=== PATIENT | female | born 1960 | race Caucasian/White ===

== ENCOUNTER 2019-08-22 08:07 | Outpatient (CLI) | payer BC, SELFPAY ==
--- NOTE | 2019-08-22 08:13 | MM_ITS ---
WS: [id number] SCREENING DIGITAL MAMMOGRAM WITH CAD HISTORY: SCREENING COMPARISON: 02/18/2018 and 02/03/2017 Bilateral CC and MLO views submitted. Computer aided detection analyzed. Breast composition: There are scattered areas of fibroglandular density. No suspicious masses, microc alcifications or architectural distortion. MM/[id number] IMPRESSION: BI-RADS: 1-Negative FOLLOW UP: 1 Year Follow-up
== END 2019-08-22 08:08 | disposition home or self-care (01) ==
LOC: RADSHAW 08:10
PROVIDERS: Family Provider Family Medicine; Visit Provider Obstetrics & Gynecology
DX: Z12.31 Encounter for screening mammogram for malignant neoplasm of breast (principal)
CPT/HCPCS: 77067

== ENCOUNTER → 2019-12-10 10:54 | Outpatient (BNVA) | payer BC, SELFPAY | PROVIDERS: Family Provider Family Medicine; Visit Provider Nurse Practitioner Family | DX: Z20.828 Contact with and (suspected) exposure to other viral communicable diseases (principal) | CPT/HCPCS: 87635 ==

== ENCOUNTER → 2019-12-19 14:23 | Outpatient (BNVA) | payer BC, SELFPAY | PROVIDERS: Family Provider Family Medicine; Visit Provider Nurse Practitioner Family | DX: Z20.828 Contact with and (suspected) exposure to other viral communicable diseases (principal) | CPT/HCPCS: 87635 ==

== ENCOUNTER 2019-12-21 01:47 | Emergency (ER) | payer BC, SELFPAY ==
[2019-12-21 01:56] VITALS: BP 138/75; PULSE 84; RESP 17; TEMP 36.8; O2SAT 98; BMI 27.4
--- NOTE | 2019-12-21 02:06 | XRR_ITS ---
PROCEDURE INFORMATION: Exam: XR Chest, 1 View Exam date and time: 12/21/2019 2:43 AM Age: 59 years old Clinical indication: Patient HX: Cough, fever, SOB, covid + TECHNIQUE: Imaging protocol: XR of the chest Views: 1 view. COMPARISON: No relevant prior studies available. FINDINGS: Lungs: Subtle interstitial prominence right lower lobe adjacent to the right heart border. Lungs are otherwise well aerated. Pleural space: Unremarkable. No pleural effusion. No pneumothorax. Heart/Mediastinum: Unremarkable. No cardiomegaly. Bones/joints: Unremarkable. XR/XR chest 1V portable [id number] IMPRESSION: Subtle interstitial prominence right lower lobe adjacent to the right heart border. Lungs are otherwise well aerated. Consider CT chest if indicated.
--- NOTE | 2019-12-21 02:15 | ED_ITS ---
Documented by User: CLARITA Stein 12/21/19 02:55 HPI - General Adult General: Chief complaint: General Medical Stated complaint: covid symptoms (exposed) Time Seen by Provider: 12/21/19 02:06 Source: patient Mode of arrival: ambulatory Limitations: no limitations History of Present Illness: HPI narrative: Patient comes in today with complai nts of cough and congestion for 1 week. Patient was tested yesterday on the for COVID which was sent out. They were awaiting test results. Patient spouse was positive for COVID. Patient appears unwell. Patient appears in no acute distress. Review of Systems General: Reports: 10 or more systems reviewed and unremarkable except in HPI and below Musc: Reports: muscle cramps and muscle weakness PFSH ED PFSH: Family History Other CAD (coronary artery disease) Cancer Stroke Social History Smoking and tobacco status: never smoked Alcohol intake: never Physical Exam Const: COMMON NORMALS: no acute distress and patient oriented x3 GENERAL APPEARANCE: cooperative HENMT: COMMON NORMALS: normocephalic and Normal external nose present HEAD & SCALP: normal to inspection and normocephalic NOSE: Normal external nose present MOUTH: Normal oral and palatal mucosa present Eye: GENERAL EYE: appearance normal, both eyes and all related structures Neck/C-Spine: COMMON NORMALS: full ROM Chest: COMMONS NORMALS: normal inspection of the chest Resp: COMMON NORMALS: normal respiratory effort and clear to auscultation bilaterally EFFORT & INSPECTION: Yes able to speak in complete sentences AUSCULTATION: clear to auscultation bilaterally Cardio: COMMON NORMALS: regular rate and regular rhythm RATE: regular rate RHYTHM: regular rhythm GI: COMMON NORMALS: non-tender Back/Pelvis: COMMON NORMALS: thoracic and lumbar spine normal to inspection Extremity: COMMON NORMALS: normal to inspection Neuro: COMMON NORMALS: patient oriented x3 and moves all extremities Psych: COMMON NORMALS: mental status grossly normal and cooperative Skin: COMMON NORMALS: no rashes or lesions noted GENERAL SKIN EXAM: no rashes or lesions noted Course ED course: 254, Reviewed patient with Dr. Simeon who is going to assume care on my leave. Patient is resting quietly. We are awaiting labs. Xray has a area in right lower lung with some light consolidation. wjw Vital Signs: Vital signs: Vital Signs Temperature 98.2 F 12/21/19 01:56 Pulse Rate 80 12/21/19 06:00 Respiratory Rate 18 12/21/19 06:00 Blood Pressure 130/77 12/21/19 06:00 Pulse Oximetry 96 12/21/19 06:00 [facility] - General Adult Lab Data: Labs: Lab Results 12/21/19 12/21/19 12/21/19 Range/Units 02:52 02:52 04:00 WBC 4.6 (4.0-10.0) 10^3/ uL RBC 4.72 (4.1-5.3) 10^6/u L Hgb 13.8 (11.5-15.3) g/dL Hct 42.3 (37.0-47.0) % MCV 89.6 (81-99) fL MCH 29.2 (28.0-34.0) pg MCHC 32.6 (30.0-36.0) g/dL RDW 13.1 (12.1-15.1) % Plt Count 233 (130-400) 10^3/c mm MPV 10.1 (7.4-10.4) fL Neut % (Auto) 77.2 % Lymph % (Auto) 17.7 % [place] % (Auto) 4.5 % Eos % (Auto) 0.2 % Baso % (Auto) 0.2 % Neut # (Auto) 3.57 (1.8-7.7) 10^3/u L Lymph # (Auto) 0.8 (0.8-4.8) 10^3/u L [place] # (Auto) 0.2 (0.2-0.9) 10^3/u L Eos # (Auto) 0.0 (0.0-0.8) 10^3/u L Baso # (Auto) 0.0 (0.0-0.1) 10^3/u L Nucleated RBC % (a uto) 0 % Nucleated RBCs # 0.0 /100WBC Sodium Cancelled Cancelled Potassium Cancelled Cancelled Chloride Cancelled Cancelled Carbon Dioxide Cancelled Cancelled Anion Gap Cancelled Cancelled BUN Cancelled Cancelled Creatinine Cancelled Cancelled GFR Calculation Cancelled Cancelled Glucose Cancelled Cancelled Calculated Osmolal ity Cancelled Cancelled Calcium Cancelled Cancelled Total Bilirubin Cancelled Cancelled AST Cancelled Cancelled ALT Cancelled Cancelled Alkaline Phosphata se Cancelled Cancelled Total Protein Cancelled Cancelled Albumin Cancelled Cancelled Globulin Cancelled Cancelled 12/21/19 Range/Units 05:20 WBC (4.0-10.0) 10^3/ uL RBC (4.1-5.3) 10^6/u L Hgb (11.5-15.3) g/dL Hct (37.0-47.0) % MCV (81-99) fL MCH (28.0-34.0) pg MCHC (30.0-36.0) g/dL RDW (12.1-15.1) % Plt Count (130-400) 10^3/c mm MPV (7.4-10.4) fL Neut % (Auto) % Lymph % (Auto) % [place] % (Auto) % Eos % (Auto) % Baso % (Auto) % Neut # (Auto) (1.8-7.7) 10^3/u L Lymph # (Auto) (0.8-4.8) 10^3/u L [place] # (Auto) (0.2-0.9) 10^3/u L Eos # (Auto) (0.0-0.8) 10^3/u L Baso # (Auto) (0.0-0.1) 10^3/u L Nucleated RBC % (a uto) % Nucleated RBCs # /100WBC Sodium 137 Potassium 3.5 Chloride 105 Carbon Dioxide 19 L Anion Gap 16.5 BUN 11 Creatinine 0.7 GFR Calculation 85.9 L Glucose 121 H Calculated Osmolal ity 285 Calcium 8.8 Total Bilirubin 0.3 AST 41 H ALT 31 Alkaline Phosphata se 124 H Total Protein 6.6 Albumin 3.8 Globulin 2.8 Discharge Plan Discharge Patient Disposition: Home Clinical Impression: COVID-19 virus infection, Pneumonia Condition: Stable Prescriptions: New levofloxacin 750 mg tablet 750 mg PO DAILY 7 Days RF: 7 No Action levothyroxine [Synthroid] 125 mcg tablet 125 mcg PO DAILY RF: 0 estradiol 1 mg tablet 1 mg PO DAILY RF: 0 amitriptyline 75 mg tablet 75 mg PO DAILY RF: 0 simvastatin 10 mg tablet 10 mg PO DAILY RF: 0 ondansetron HCl 4 mg tablet 4 mg PO Q4H PRN (Reason: Nausea) RF: 0 Tylenol Extra Strength 500 mg Tablet 1,000 mg PO PRN RF: 0 ibuprofen 200 mg Tablet 600 - 800 mg PO PRN RF: 0 Reglan 10 mg tablet 10 mg PO Q6H PRN (Reason: nausea and vomiting) Qty: 20 RF: 0 Discharge Orders: Discharge Order (Routine); Ordered 12/21/19 Ordered By: Alan Ascencio Referrals: Steven Jorge MD [Primary Care Provider] - Activity Restrictions/Additional Instructions: Follow-up with your primary care doctor within the next week. Return to the emergency room if you have worsening trouble breathing. Maintain quarantine for 14 days from the onset of symptoms Discharge Date/Time: 12/21/19 06:53 Sign Out Sign Out Data: Patient Sign Out occurred on 12/21/19 at 02:55. Patient's care was discussed, and care was transferred from Jayesh Gilbert to Veronique Ron. Sign Out Comment: awaiting labs, xray noted a consolidation in right lower lung Last updated by Jayesh Gilbert FNP at 12/21/19 02:53 Patient Sign Out occurred on 12/21/19 at 06:27. Patient's care was discussed, and care was transferred from to Alan Ascencio DO. Coding Level of Care Code ED Digging Machine Operator for Chg Fwd Exam Comprehensive Documented by User: Veronique Ron 12/21/19 05:13 HPI - General Adult General: Chief complaint: General Medical Stated complaint: covid symptoms (exposed) Time Seen by Provider: 12/21/19 02:06 [facility] ED PFSH: Family History Other CAD (coronary artery disease) Cancer Stroke Social History Smoking and tobacco status: never smoked Alcohol intake: never Course Vital Signs: Vital signs: Vital Signs Temperature 98.2 F 12/21/19 01:56 Pulse Rate 80 12/21/19 06:00 Respiratory Rate 18 12/21/19 06:00 Blood Pressure 130/77 12/21/19 06:00 Pulse Oximetry 96 12/21/19 06:00 [facility] - General Adult Lab Data: Labs: Lab Results 12/21/19 12/21/19 12/21/19 Range/Units 02:52 02:52 04:00 WBC 4.6 (4.0-10.0) 10^3/ uL RBC 4.72 (4.1-5.3) 10^6/u L Hgb 13.8 (11.5-15.3) g/dL Hct 42.3 (37.0-47.0) % MCV 89.6 (81-99) fL MCH 29.2 (28.0-34.0) pg MCHC 32.6 (30.0-36.0) g/dL RDW 13.1 (12.1-15.1) % Plt Count 233 (130-400) 10^3/c mm MPV 10.1 (7.4-10.4) fL Neut % (Auto) 77.2 % Lymph % (Auto) 17.7 % [place] % (Auto) 4.5 % Eos % (Auto) 0.2 % Baso % (Auto) 0.2 % Neut # (Auto) 3.57 (1.8-7.7) 10^3/u L Lymph # (Auto) 0.8 (0.8-4.8) 10^3/u L [place] # (Auto) 0.2 (0.2-0.9) 10^3/u L Eos # (Auto) 0.0 (0.0-0.8) 10^3/u L Baso # (Auto) 0.0 (0.0-0.1) 10^3/u L Nucleated RBC % (a uto) 0 % Nucleated RBCs # 0.0 /100WBC Sodium Cancelled Cancelled Potassium Cancelled Cancelled Chloride Cancelled Cancelled Carbon Dioxide Cancelled Cancelled Anion Gap Cancelled Cancelled BUN Cancelled Cancelled Creatinine Cancelled Cancelled GFR Calculation Cancelled Cancelled Glucose Cancelled Cancelled Calculated Osmolal ity Cancelled Cancelled Calcium Cancelled Cancelled Total Bilirubin Cancelled Cancelled AST Cancelled Cancelled ALT Cancelled Cancelled Alkaline Phosphata se Cancelled Cancelled Total Protein Cancelled Cancelled Albumin Cancelled Cancelled Globulin Cancelled Cancelled 12/21/19 Range/Units 05:20 WBC (4.0-10.0) 10^3/ uL RBC (4.1-5.3) 10^6/u L Hgb (11.5-15.3) g/dL Hct (37.0-47.0) % MCV (81-99) fL MCH (28.0-34.0) pg MCHC (30.0-36.0) g/dL RDW (12.1-15.1) % Plt Count (130-400) 10^3/c mm MPV (7.4-10.4) fL Neut % (Auto) % Lymph % (Auto) % [place] % (Auto) % Eos % (Auto) % Baso % (Auto) % Neut # (Auto) (1.8-7.7) 10^3/u L Lymph # (Auto) (0.8-4.8) 10^3/u L [place] # (Auto) (0.2-0.9) 10^3/u L Eos # (Auto) (0.0-0.8) 10^3/u L Baso # (Auto) (0.0-0.1) 10^3/u L Nucleated RBC % (a uto) % Nucleated RBCs # /100WBC Sodium 137 Potassium 3.5 Chloride 105 Carbon Dioxide 19 L Anion Gap 16.5 BUN 11 Creatinine 0.7 GFR Calculation 85.9 L Glucose 121 H Calculated Osmolal ity 285 Calcium 8.8 Total Bilirubin 0.3 AST 41 H ALT 31 Alkaline Phosphata se 124 H Total Protein 6.6 Albumin 3.8 Globulin 2.8 Discharge Plan Discharge Patient Disposition: Home Clinical Impression: COVID-19 virus infection, Pneumonia Condition: Stable Prescriptions: New levofloxacin 750 mg tablet 750 mg PO DAILY 7 Days RF: 7 No Action levothyroxine [Synthroid] 125 mcg tablet 125 mcg PO DAILY RF: 0 estradiol 1 mg tablet 1 mg PO DAILY RF: 0 amitriptyline 75 mg tablet 75 mg PO DAILY RF: 0 simvastatin 10 mg tablet 10 mg PO DAILY RF: 0 ondansetron HCl 4 mg tablet 4 mg PO Q4H PRN (Reason: Nausea) RF: 0 Tylenol Extra Strength 500 mg Tablet 1,000 mg PO PRN RF: 0 ibuprofen 200 mg Tablet 600 - 800 mg PO PRN RF: 0 Reglan 10 mg tablet 10 mg PO Q6H PRN (Reason: nausea and vomiting) Qty: 20 RF: 0 Discharge Orders: Discharge Order (Routine); Ordered 12/21/19 Ordered By: Alan Ascencio Referrals: Steven Jorge MD [Primary Care Provider] - Activity Restrictions/Additional Instructions: Follow-up with your primary care doctor within the next week. Return to the emergency room if you have worsening trouble breathing. Maintain quarantine for 14 days from the onset of symptoms Discharge Date/Time: 12/21/19 06:53 Sign Out Sign Out Data: Patient Sign Out occurred on 12/21/19 at 02:55. Patient's care was discussed, and care was transferred from Jayesh Gilbert to Veronique Ron. Sign Out Comment: awaiting labs, xray noted a consolidation in right lower lung Last updated by Jayesh Gilbert FNP at 12/21/19 02:53 Patient Sign Out occurred on 12/21/19 at 06:27. Patient's care was discussed, and care was transferred from to Alan Ascencio DO. Coding Level of Care Code ED Digging Machine Operator for Chg Fwd Exam Comprehensive Documented by User: Alan Ascencio DO 12/27/19 06:57 HPI - General Adult General: Chief complaint: General Medical Stated complaint: covid symptoms (exposed) Time Seen by Provider: 12/21/19 02:06 PFS ED PFSH: Family History Other CAD (coronary artery disease) Cancer Stroke Social History Smoking and tobacco status: never smoked Alcohol intake: never Course Vital Signs: Vital signs: Vital Signs Temperature 98.2 F 12/21/19 01:56 Pulse Rate 80 12/21/19 06:00 Respiratory Rate 18 12/21/19 06:00 Blood Pressure 130/77 12/21/19 06:00 Pulse Oximetry 96 12/21/19 06:00 MDM - General Adult MDM Narrative: Medical decision making narrative: Patient present in the emergency room when I started my shift chart reviewed chest x-ray is a ques tionable right lower lobe infiltrate. She is positive for coronavirus her is positive as well her vital signs are good we will go ahead and discharge her home she is maintaining 98 to 96% on room air. And get add Levaquin to cover for the possibility of a secondary pneumonia discussed with the patient if her breathing worsens or she has difficulty she should return to the emergency room for reevaluation. Would like to have her follow-up with her regular doctor within the next 1 to 2 days. Lab Data: Labs: Lab Results 12/21/19 12/21/19 12/21/19 Range/Units 02:52 02:52 04:00 WBC 4.6 (4.0-10.0) 10^3/ uL RBC 4.72 (4.1-5.3) 10^6/u L Hgb 13.8 (11.5-15.3) g/dL Hct 42.3 (37.0-47.0) % MCV 89.6 (81-99) fL MCH 29.2 (28.0-34.0) pg MCHC 32.6 (30.0-36.0) g/dL RDW 13.1 (12.1-15.1) % Plt Count 233 (130-400) 10^3/c mm MPV 10.1 (7.4-10.4) fL Neut % (Auto) 77.2 % Lymph % (Auto) 17.7 % [place] % (Auto) 4.5 % Eos % (Auto) 0.2 % Baso % (Auto) 0.2 % Neut # (Auto) 3.57 (1.8-7.7) 10^3/u L Lymph # (Auto) 0.8 (0.8-4.8) 10^3/u L [place] # (Auto) 0.2 (0.2-0.9) 10^3/u L Eos # (Auto) 0.0 (0.0-0.8) 10^3/u L Baso # (Auto) 0.0 (0.0-0.1) 10^3/u L Nucleated RBC % (a uto) 0 % Nucleated RBCs # 0.0 /100WBC Sodium Cancelled Cancelled Potassium Cancelled Cancelled Chloride Cancelled Cancelled Carbon Dioxide Cancelled Cancelled Anion Gap Cancelled Cancelled BUN Cancelled Cancelled Creatinine Cancelled Cancelled GFR Calculation Cancelled Cancelled Glucose Cancelled Cancelled Calculated Osmolal ity Cancelled Cancelled Calcium Cancelled Cancelled Total Bilirubin Cancelled Cancelled AST Cancelled Cancelled ALT Cancelled Cancelled Alkaline Phosphata se Cancelled Cancelled Total Protein Cancelled Cancelled Albumin Cancelled Cancelled Globulin Cancelled Cancelled 12/21/19 Range/Units 05:20 WBC (4.0-10.0) 10^3/ uL RBC (4.1-5.3) 10^6/u L Hgb (11.5-15.3) g/dL Hct (37.0-47.0) % MCV (81-99) fL MCH (28.0-34.0) pg MCHC (30.0-36.0) g/dL RDW (12.1-15.1) % Plt Count (130-400) 10^3/c mm MPV (7.4-10.4) fL Neut % (Auto) % Lymph % (Auto) % [place] % (Auto) % Eos % (Auto) % Baso % (Auto) % Neut # (Auto) (1.8-7.7) 10^3/u L Lymph # (Auto) (0.8-4.8) 10^3/u L [place] # (Auto) (0.2-0.9) 10^3/u L Eos # (Auto) (0.0-0.8) 10^3/u L Baso # (Auto) (0.0-0.1) 10^3/u L Nucleated RBC % (a uto) % Nucleated RBCs # /100WBC Sodium 137 Potassium 3.5 Chloride 105 Carbon Dioxide 19 L Anion Gap 16.5 BUN 11 Creatinine 0.7 GFR Calculation 85.9 L Glucose 121 H Calculated Osmolal ity 285 Calcium 8.8 Total Bilirubin 0.3 AST 41 H ALT 31 Alkaline Phosphata se 124 H Total Protein 6.6 Albumin 3.8 Globulin 2.8 Discharge Plan Discharge Patient Disposition: Home Clinical Impression: COVID-19 virus infection, Pneumonia Condition: Stable Prescriptions: New levofloxacin 750 mg tablet 750 mg PO DAILY 7 Days RF: 7 No Action levothyroxine [Synthroid] 125 mcg tablet 125 mcg PO DAILY RF: 0 estradiol 1 mg tablet 1 mg PO DAILY RF: 0 amitriptyline 75 mg tablet 75 mg PO DAILY RF: 0 simvastatin 10 mg tablet 10 mg PO DAILY RF: 0 ondansetron HCl 4 mg tablet 4 mg PO Q4H PRN (Reason: Nausea) RF: 0 Tylenol Extra Strength 500 mg Tablet 1,000 mg PO PRN RF: 0 ibuprofen 200 mg Tablet 600 - 800 mg PO PRN RF: 0 Reglan 10 mg tablet 10 mg PO Q6H PRN (Reason: nausea and vomiting) Qty: 20 RF: 0 Discharge Orders: Discharge Order (Routine); Ordered 12/21/19 Ordered By: Alan Ascencio Referrals: Steven Jorge MD [Primary Care Provider] - Activity Restrictions/Additional Instructions: Follow-up with your primary care doctor within the next week. Return to the emergency room if you have worsening trouble breathing. Maintain quarantine for 14 days from the onset of symptoms Discharge Date/Time: 12/21/19 06:53 Sign Out Sign Out Data: Patient Sign Out occurred on 12/21/19 at 02:55. Patient's care was discussed, and care was transferred from Jayesh Gilbert to Veronique Ron. Sign Out Comment: awaiting labs, xray noted a consolidation in right lower lung Last updated by Jayesh Gilbert FNP at 12/21/19 02:53 Patient Sign Out occurred on 12/21/19 at 06:27. Patient's care was discussed, and care was transferred from to Alan Ascencio DO. Coding Level of Care Code ED Digging Machine Operator for Chg Fwd Exam Comprehensive
[2019-12-21] MEDS: dexamethasone 4 mg/mL INJ 8 MG IVP (02:25)
[2019-12-21] MEDS: sodium chloride 0.9% 1,000 ML 999 ML IV (02:27)
[2019-12-21] MEDS: ketorolac 30 mg/mL INJ 15 MG IVP (02:36)
[2019-12-21 03:04] VITALS: BP 127/71; PULSE 84; RESP 18; O2SAT 97
[2019-12-21 03:10] LABS: Basophils % 0.2 %; Eosinophils % 0.2 %; Hematocrit 42.3 % (37.0-47.0); Hemoglobin 13.8 g/dL (11.5-15.3); Lymphocytes # 0.8 10^3/uL (0.8-4.8); Lymphocytes % 17.7 %; Mean Corpuscular HGB Conc 32.6 g/dL (30.0-36.0); Mean Corpuscular Hemoglobin 29.2 pg (28.0-34.0); Mean Corpuscular Volume 89.6 fL (81-99); Mean Platelet Volume 10.1 fL (7.4-10.4); Monocytes # 0.2 10^3/uL (0.2-0.9); Monocytes % 4.5 %; Neutrophils # 3.57 10^3/uL (1.8-7.7); Neutrophils % 77.2 %; Nucleated Red Blood Cells % 0 %; Platelet Count 233 10^3/cmm (130-400); Red Blood Count 4.72 10^6/uL (4.1-5.3); Red Cell Distribution Width 13.1 % (12.1-15.1); White Blood Count 4.6 10^3/uL (4.0-10.0)
[2019-12-21 05:48] LABS: Alanine Aminotransferase 31 U/L (0-33); Albumin Level 3.8 g/dL (3.5-5.2); Alkaline Phosphatase 124 IU/L (35-105); Anion Gap 16.5 (5-19); Aspartate Amino Transferase 41 U/L (0-32); Blood Urea Nitrogen 11 mg/dL (6-20); Calcium 8.8 mg/dL (8.5-10.5); Carbon Dioxide 19 mmol/L (22-29); Chloride 105 mmol/L (98-107); Creatinine Clr Calc Pharmacy 91.8607; Globulin 2.8 g/dL (1.3-4.6); Glomerular Filtration Rate 85.9 mL/min (90-130); Glucose 121 mg/dL (65-115); Osmolality Calculated 285 mOsm/kg (285-295); Potassium 3.5 mmol/L (3.5-5.1); Sodium 137 mmol/L (136-145); Total Bilirubin 0.3 mg/dL (0.15-1.2); Total Protein 6.6 g/dL (6.6-8.7)
[2019-12-21 06:00] VITALS: BP 130/77; PULSE 80; RESP 18; O2SAT 96
== END 2019-12-21 06:53 | disposition home or self-care (01) ==
PROVIDERS: Emergency Medicine; Nurse Practitioner Family; Emergency Provider Family Medicine; PCP Family Medicine
DX: U07.1 COVID-19 (principal); J12.89 Other viral pneumonia
CPT/HCPCS: 12345; 71045; 80053; 85025; 96361; 96374; 96375; 99283; J1100; J1885; J7030

== ENCOUNTER 2019-12-23 16:31 | Emergency (ER) | payer BC, SELFPAY ==
[2019-12-23 16:39] VITALS: BP 129/98; PULSE 85; RESP 20; TEMP 37.5; O2SAT 97; BMI 31.3
--- NOTE | 2019-12-23 16:42 | XRR_ITS ---
PROCEDURE INFORMATION: Exam: XR Chest, 1 View Exam date and time: 12/23/2019 4:43 PM Age: 59 years old Clinical indication: Shortness of breath; Additional info: Covid TECHNIQUE: Imaging protocol: XR of the chest Views: 1 view. COMPARISON: CR XR chest 1V portable [id number] 12/21/2019 2:27 AM FINDINGS: Lungs: Unremarkable. No consolidation. Pleural space: Unremarkable. No pleural effusion. No pneumothorax. Heart/Mediastinum: Unremarkable. No cardiomegaly. Bones/joints: Unremarkable. XR/XR chest 1V portable [id number] IMPRESSION: No acute findings.
[2019-12-23 17:12] VITALS: BP 151/84; PULSE 76; RESP 18; TEMP 37.8; O2SAT 98
[2019-12-23] MEDS: ondansetron 2 mg/ML SDV 2 mL 4 MG IVP (17:12)
[2019-12-23 17:17] LABS: Basophils % 0.1 %; Eosinophils % 0.1 %; Hematocrit 43.3 % (37.0-47.0); Hemoglobin 13.8 g/dL (11.5-15.3); Lymphocytes % 11.2 %; Mean Corpuscular HGB Conc 31.9 g/dL (30.0-36.0); Mean Corpuscular Hemoglobin 29.3 pg (28.0-34.0); Mean Corpuscular Volume 91.9 fL (81-99); Mean Platelet Volume 9.6 fL (7.4-10.4); Monocytes # 0.3 10^3/uL (0.2-0.9); Monocytes % 2.8 %; Neutrophils # 7.59 10^3/uL (1.8-7.7); Neutrophils % 85.2 %; Nucleated Red Blood Cells % 0 %; Platelet Count 354 10^3/cmm (130-400); Red Blood Count 4.71 10^6/uL (4.1-5.3); Red Cell Distribution Width 13.1 % (12.1-15.1); White Blood Count 8.9 10^3/uL (4.0-10.0)
[2019-12-23] MEDS: sodium chloride 0.9% 1,000 ML 999 ML IV (17:18)
[2019-12-23] MEDS: acetaminophen 325 mg Tablet 650 MG PO (17:18)
--- NOTE | 2019-12-23 17:21 | W.ED.NAVMDI ---
HPI - Nausea/Vomiting/Diarrhea General: Chief complaint: Nausea/Vomiting/Diarrhea Stated complaint: COVID+ N/V Time Seen by Provider: 12/23/19 16:42 Source: patient Mode of arrival: ambulatory Limitations: no limitations History of Present Illness: HPI Narrative: 59-year-old female who tested positive for COVID last week. She states she has had increasing cough along with nausea and vomiting. She states she has had abdominal cramping as well. Denies any worsening improving factors she states she has been having difficulty keeping anything down. She denies any chest pain. Patient states her cough is worsened. Associated nausea: Yes Associated symtoms: Reports nausea; Denies chest pain, dysuria or headache(s) Review of Systems Const: Denies: fever(s), chills, body aches or change in appetite Eyes: Denies: blurry vision or eye discomfort ENMT: Denies: throat pain or dental pain Card: Denies: chest pain Resp: Reports: dyspnea and non-productive cough GI: Reports: nausea and vomiting : Denies: dysuria Musc: Denies: neck pain or back pain Skin/Breast: Denies: rash Neuro: Denies: headache(s) Psych: Denies: depression Spike/Lymph: Denies: easy bruising All/Imm: Denies: urticaria PFSH ED PFSH: Family History Other CAD (coronary artery disease) Cancer Stroke Social History Smoking and tobacco status: never smoked Alcohol intake: never Physical Exam Const: COMMON NORMALS: no acute distress, patient oriented x3 and healthy appearing HENMT: COMMON NORMALS: normocephalic and atraumatic HEAD & SCALP: normocephalic and atraumatic Eye: COMMON NORMALS: Equal, round and reactive pupils present and EOMs intact bilaterally PUPIL: Yes Equal, round and reactive pupils present Neck/C-Spine: COMMON NORMALS: full ROM and supple Chest: COMMONS NORMALS: normal inspection of the chest and normal palpation of entire chest wall Resp: COMMON NORMALS: normal respiratory effort, No retractions, No use of accessory muscles and clear to auscultation bilaterally AUSCULTATION: clear to auscultation bilaterally Cardio: COMMON NORMALS: regular rate, regular rhythm and No murmurs present (Cardio) RATE: regular rate RHYTHM: regular rhythm GI: COMMON NORMALS: Normal to inspection, nondistended, normoactive bowel sounds present, Soft to palpation, non-tender and no masses PALPATION: Yes Soft to palpation Extremity: COMMON NORMALS: normal to inspection and full ROM Neuro: COMMON NORMALS: patient oriented x3, moves all extremities and no focal motor deficits Psych: COMMON NORMALS: mental status grossly normal, Normal thought process present and cooperative THOUGHT PROCESS: Normal thought process present Skin: COMMON NORMALS: no rashes or lesions noted and no wounds GENERAL SKIN EXAM: no rashes or lesions noted Course Vital Signs: Vital signs: Vital Signs Temperature 99.8 F H 12/23/19 19:48 Pulse Rate 88 12/23/19 19:48 Respiratory Rate 16 12/23/19 19:48 Blood Pressure 134/66 12/23/19 19:48 Pulse Oximetry 97 12/23/19 19:48 MDM - Nausea/Vomiting/Diarrhea MDM Narrative: Medical decision making narrative: Patient presents here with nausea and vomiting with coronavirus. She is febrile. Feels much improved. Patient's lab work and x-ray here are all normal. She feels much improved after IV fluids and Reglan. We will place her on Reglan for home I feel she is stable for discharge. She is to follow-up with PCP in 3 to 5 days and return if worsening. She understands and agrees to the plan. Lab Data: Labs: Lab Results 12/23/19 12/23/19 12/23/19 Range/Units 17:00 17:00 19:00 WBC 8.9 (4.0-10.0) 10^3/ uL RBC 4.71 (4.1-5.3) 10^6/u L Hgb 13.8 (11.5-15.3) g/dL Hct 43.3 (37.0-47.0) % MCV 91.9 (81-99) fL MCH 29.3 (28.0-34.0) pg MCHC 31.9 (30.0-36.0) g/dL RDW 13.1 (12.1-15.1) % Plt Count 354 (130-400) 10^3/c mm MPV 9.6 (7.4-10.4) fL Neut % (Auto) 85.2 % Lymph % (Auto) 11.2 % [place] % (Auto) 2.8 % Eos % (Auto) 0.1 % Baso % (Auto) 0.1 % Neut # (Auto) 7.59 (1.8-7.7) 10^3/u L Lymph # (Auto) 1.0 (0.8-4.8) 10^3/u L [place] # (Auto) 0.3 (0.2-0.9) 10^3/u L Eos # (Auto) 0.0 (0.0-0.8) 10^3/u L Baso # (Auto) 0.0 (0.0-0.1) 10^3/u L Nucleated RBC % (a uto) 0 % Nucleated RBCs # 0.0 /100WBC Sodium 136 (136-145) mmol/L Potassium 3.3 L (3.5-5.1) mmol/L Chloride 98 (98-107) mmol/L Carbon Dioxide 24 (22-29) mmol/L Anion Gap 17.3 (5-19) BUN 11 (6-20) mg/dL Creatinine 0.8 (0.5-0.9) mg/dL GFR Calculation 73.7 L (90-130) mL/min Glucose 98 (65-115) mg/dL Calculated Osmolal ity 281 L (285-295) mOsm/k g Calcium 9.3 (8.5-10.5) mg/dL Total Bilirubin 0.5 (0.15-1.2) mg/dL AST 40 H (0-32) U/L ALT 37 H (0-33) U/L Alkaline Phosphata se 140 H (35-105) IU/L Total Protein 7.3 (6.6-8.7) g/dL Albumin 3.8 (3.5-5.2) g/dL Globulin 3.5 (1.3-4.6) g/dL Lipase 17 (13-60) U/L Urine Color Yellow (Yellow) Urine Appearance Hazy A (CLEAR) Urine pH 6 (5-7) Ur Specific Gravit y 1.010 (1.005-1.030) Urine Protein Neg (Negative) Urine Glucose (UA) Norm (Normal) Urine Ketones 2+ H (Negative) Urine Blood Neg (Negative) Urine Nitrate Negative (Negative) Urine Bilirubin Neg (Negative) Urine Urobilinogen 1 H (Negative) mg/dL Ur Leukocyte Carly ase Negative (Negative) Discharge Plan Discharge Patient Disposition: Home Clinical Impression: COVID-19 virus infection, Vomiting Condition: Stable Prescriptions: New Reglan 10 mg tablet 10 mg PO Q6H PRN (Reason: nausea and vomiting) Qty: 20 RF: 0 No Action levothyroxine [Synthroid] 125 mcg tablet 125 mcg PO DAILY RF: 0 estradiol 1 mg tablet 1 mg PO DAILY RF: 0 amitriptyline 75 mg tablet 75 mg PO DAILY RF: 0 simvastatin 10 mg tablet 10 mg PO DAILY RF: 0 ondansetron HCl 4 mg tablet 4 mg PO Q4H PRN (Reason: Nausea) RF: 0 Tylenol Extra Strength 500 mg Tablet 1,000 mg PO PRN RF: 0 ibuprofen 200 mg Tablet 600 - 800 mg PO PRN RF: 0 levofloxacin 750 mg tablet 750 mg PO DAILY 7 Days RF: 7 Discharge Orders: Discharge Order (Routine); Ordered 12/23/19 Ordered By: Elier Crump Referrals: Steven Jorge MD [Primary Care Provider] - 1-3 days Discharge Diet: Advance as tolerated Discharge Activity: Resume usual activity Patient Instructions: Acute Nausea and Vomiting (ED) Discharge Date/Time: 12/23/19 20:05 Coding Level of Care Code ED Presales Engineer for Dora Fwd Exam Comprehensive
[2019-12-23 17:37] LABS: Alanine Aminotransferase 37 U/L (0-33); Albumin Level 3.8 g/dL (3.5-5.2); Alkaline Phosphatase 140 IU/L (35-105); Anion Gap 17.3 (5-19); Aspartate Amino Transferase 40 U/L (0-32); Blood Urea Nitrogen 11 mg/dL (6-20); Calcium 9.3 mg/dL (8.5-10.5); Carbon Dioxide 24 mmol/L (22-29); Chloride 98 mmol/L (98-107); Globulin 3.5 g/dL (1.3-4.6); Glomerular Filtration Rate 73.7 mL/min (90-130); Glucose 98 mg/dL (65-115); Lipase 17 U/L (13-60); Osmolality Calculated 281 mOsm/kg (285-295); Potassium 3.3 mmol/L (3.5-5.1); Sodium 136 mmol/L (136-145); Total Bilirubin 0.5 mg/dL (0.15-1.2); Total Protein 7.3 g/dL (6.6-8.7)
[2019-12-23 18:03] VITALS: BP 143/75; PULSE 81; RESP 20; TEMP 38.9; O2SAT 93
[2019-12-23] MEDS: acetaminophen 500 mg Tablet PO (18:17)
[2019-12-23] MEDS: diphenhydrAMINE 50 mg/mL SDV 1mL IVP (18:54)
[2019-12-23] MEDS: metoclopramide 5 mg/mL SDV 2 mL 10 MG IVP (18:54)
[2019-12-23 19:04] VITALS: BP 128/79; PULSE 86; RESP 18; TEMP 38.2; O2SAT 92
[2019-12-23 19:19] LABS: Add Urine Microscopic? NO
[2019-12-23 19:25] LABS: Bilirubin Urine Neg (Negative); Blood Urine Neg (Negative); Glucose Urine UA Norm (Normal); Ketones Urine 2+ (Negative); Leukocyte Esterase Urine Negative (Negative); Nitrate Urine Negative (Negative); Protein Urine Neg (Negative); Urine Appearance Hazy (CLEAR); Urine Color Yellow (Yellow); Urobilinogen Urine 1 mg/dL (Negative); pH Urine 6 (5-7)
[2019-12-23] MEDS: metoclopramide 10 mg Tablet PO (19:47)
[2019-12-23 19:48] VITALS: BP 134/66; PULSE 88; RESP 16; TEMP 37.7; O2SAT 97
--- NOTE | 2019-12-23 20:05 | PC.NURSE ---
Pt ride here. Pt out via wheelchair accompanied by staff in stable condition
== END 2019-12-23 20:05 | disposition home or self-care (01) ==
PROVIDERS: Emergency Provider Emergency Medicine; PCP Family Medicine
DX: U07.1 COVID-19 (principal); R11.10 Vomiting, unspecified
CPT/HCPCS: 12345; 71045; 80053; 81003; 83690; 85025; 96361; 96374; 96375; 99283; 99284; J1200; J2405; J2765; J7030; J8597

== ENCOUNTER 2020-10-19 08:10 | Outpatient (CLI) | payer BC, SELFPAY ==
--- NOTE | 2020-10-19 08:15 | MM_ITS ---
WS: [id number] Exam: [id number] Date/Time of Exam: 10/19/2020 8:15 AM Reason For Exam: SCREENING VIEWS: MLO and CC views both breasts. Comparison made with prior exam of 11/13/2014, 02/03/2017, 02/18/2018 and 08/22/2019. Findings: There was no sign of mass, architectural distortion or suspicious calcification in either breast. Sc attered fibroglandular densities MM/[place] [id number] Impression: BI-RADS: 2-Benign FOLLOW-UP: 1 Year Follow-up This mammogram was also analyzed by the Computer Aided Detection System [employer].
== END 2020-10-19 08:11 | disposition home or self-care (01) ==
LOC: RADSHAW 08:14
PROVIDERS: PCP Family Medicine; Visit Provider Obstetrics & Gynecology
DX: Z12.31 Encounter for screening mammogram for malignant neoplasm of breast (principal)
CPT/HCPCS: 77067

== ENCOUNTER → 2020-12-28 11:30 | Outpatient (BNVA) | payer BC, SELFPAY | PROVIDERS: PCP Family Medicine; Visit Provider Obstetrics & Gynecology | DX: N64.52 Nipple discharge (principal) | CPT/HCPCS: 84146; 88112; 88305 ==

== ENCOUNTER → 2021-08-09 14:25 | Outpatient (BNVA) | payer BC, SELFPAY | PROVIDERS: PCP Family Medicine; Visit Provider Family Medicine | DX: M79.10 Myalgia, unspecified site (principal); E78.5 Hyperlipidemia, unspecified; M19.90 Unspecified osteoarthritis, unspecified site; E03.9 Hypothyroidism, unspecified | CPT/HCPCS: 80053; 80061; 84443; 84550; 85025; 85651; 86140; 86618; 86666; 86757 ==

== ENCOUNTER → 2021-09-04 08:05 | Outpatient (BNVA) | payer BC, SELFPAY | PROVIDERS: PCP Family Medicine; Visit Provider Podiatrist Foot & Ankle Surgery | DX: M79.672 Pain in left foot (principal) | CPT/HCPCS: 73630 ==

== ENCOUNTER 2021-10-14 08:40 | Outpatient (CLI) | payer BC, SELFPAY ==
--- NOTE | 2021-10-14 08:50 | MM_ITS ---
WS: [id number] BILATERAL SCREENING DIGITAL BREAST TOMOSYNTHESIS MAMMOGRAM WITH CAD HISTORY: SCREENING COMPARISON: 10/19/2020 and 08/22/2019 and 02/18/2018 Bilateral CC and MLO views with tomosynthesis and synthetic mammography submitted. Computer aided det ection analyzed. Breast composition: There are scattered areas of fibroglandular density. No suspicious masses, microc alcifications or architectural distortion. MM/[place] [id number] IMPRESSION: BI-RADS: 1-Negative FOLLOW UP: 1 Year Follow-up
== END 2021-10-14 08:41 | disposition home or self-care (01) ==
LOC: RAD 08:42
PROVIDERS: PCP Family Medicine; Visit Provider Obstetrics & Gynecology
DX: Z12.31 Encounter for screening mammogram for malignant neoplasm of breast (principal)
CPT/HCPCS: 77063; 77067

== ENCOUNTER → 2022-08-13 08:22 | Outpatient (BNVA) | payer BC, SELFPAY | PROVIDERS: PCP Family Medicine; Visit Provider Family Medicine | DX: Z00.00 Encounter for general adult medical examination without abnormal findings (principal); E03.9 Hypothyroidism, unspecified | CPT/HCPCS: 80053; 80061; 84443; 85025 ==

== ENCOUNTER 2022-10-15 08:01 | Outpatient (CLI) | payer BC, SELFPAY ==
--- NOTE | 2022-10-15 08:27 | MM_ITS ---
WS: [id number] BILATERAL SCREENING DIGITAL TOMOSYNTHESIS MAMMOGRAM WITH CAD HISTORY: SCREENING COMPARISON: 10/14/2021, 10/19/2020 Bilateral CC and MLO views with tomosynthesis and synthetic mammography submitted. Computer aided det ection analyzed. Breast composition: There are scattered areas of fibroglandular density. No suspicious masses, microc alcifications or architectural distortion. MM/[place] [id number] IMPRESSION: BI-RADS: 1-Negative FOLLOW UP: 1 Year Follow-up
== END 2022-10-15 08:02 | disposition home or self-care (01) ==
PROVIDERS: PCP Family Medicine; Referring Provider Nurse Practitioner Women's Health; Visit Provider Family Medicine
DX: Z12.31 Encounter for screening mammogram for malignant neoplasm of breast (principal)
CPT/HCPCS: 77063; 77067

== ENCOUNTER 2022-10-17 08:51 | Outpatient (CLI) | payer BC, SELFPAY ==
--- NOTE | 2022-10-17 09:12 | XR_ITS ---
WS: [id number] EXAMINATION: XR knee LT 3V* [id number] REASON FOR EXAM: medial left knee pain COMPARISON: None available. ORDER DATE: 10/17/2022 9:18 AM FINDINGS/IMPRESSION: There are marginal osteophytes associated with the tibial spines, and medial compartment. There is no sign of any acute fracture or dislocation.
== END 2022-10-17 08:52 | disposition home or self-care (01) ==
PROVIDERS: PCP Family Medicine; Visit Provider Clinical Nurse Specialist Adult Health
DX: M25.562 Pain in left knee (principal); M25.762 Osteophyte, left knee
CPT/HCPCS: 73562

== ENCOUNTER → 2023-06-18 07:32 | Outpatient (BNVA) | payer BC, SELFPAY | PROVIDERS: PCP Family Medicine; Visit Provider Family Medicine | DX: E11.9 Type 2 diabetes mellitus without complications (principal); E03.9 Hypothyroidism, unspecified; I10 Essential (primary) hypertension; H34.8192 Central retinal vein occlusion, unspecified eye, stable | CPT/HCPCS: 80053; 80061; 84443; 85025 ==

== ENCOUNTER 2023-10-19 07:23 | Outpatient (CLI) | payer OTHER, SELFPAY ==
--- NOTE | 2023-10-19 08:00 | MM_ITS ---
WS: [id number] BILATERAL SCREENING DIGITAL TOMOSYNTHESIS MAMMOGRAM WITH CAD HISTORY: Z12.39 - Encounter for other screening for malignant neop... COMPARISON: 10/15/2022, 02/03/2017, 10/14/2021 Bilateral CC and MLO views with tomosynthesis and synthetic mammography submitted. Computer aided det ection analyzed. Breast composition: There are scattered areas of fibroglandular density. No suspicious masses, microc alcifications or architectural distortion. Stable asymmetry RIGHT subareolar region is similar to 201 7. No suspicious mass or calcification. MM/[place] [id number] IMPRESSION: BI-RADS: 2-Benign FOLLOW UP: 1 Year Follow-up
== END 2023-10-19 07:24 | disposition home or self-care (01) ==
LOC: RAD 07:23
PROVIDERS: PCP Family Medicine; Visit Provider Nurse Practitioner Women's Health
DX: Z12.31 Encounter for screening mammogram for malignant neoplasm of breast (principal); R92.323 Mammographic fibroglandular density, bilateral breasts; N64.89 Other specified disorders of breast
CPT/HCPCS: 77063; 77067

== ENCOUNTER → 2024-01-25 07:44 | Outpatient (BNVA) | payer OTHER, SELFPAY | PROVIDERS: PCP Family Medicine; Visit Provider Family Medicine | DX: I10 Essential (primary) hypertension (principal); E03.9 Hypothyroidism, unspecified; E11.9 Type 2 diabetes mellitus without complications | CPT/HCPCS: 80053; 80061; 84443; 85025 ==

== ENCOUNTER 2025-01-31 08:38 | Outpatient (CLI) | payer OTHER, SELFPAY ==
--- NOTE | 2025-01-31 09:00 | MM_ITS ---
WS: [id number] BILATERAL 3D TOMOSYNTHESIS DIGITAL SCREENING MAMMOGRAPHY WITH CAD CLINICAL INFORMATION: screening HISTORY: Screening mammogram. No current complaints. COMPARISON: 2023 TECHNIQUE: Bilateral CC and MLO views. FINDINGS: Scattered fibroglandular densities bilaterally. No suspicious focal mass, asymmetry, calcifications, or architectural distortion. No evidence of malignancy. Nodular densities outer RIGHT breast posteriorly similar to 2018 MM/MM scr tomosynthesis [id number] IMPRESSION: DENSITY: There are scattered areas of fibroglandular density. BI-RADS: 2 - Benign. FOLLOW UP: 1 Year Follow-up Recommend return to annual screening mammography.
== END 2025-01-31 08:39 | disposition home or self-care (01) ==
LOC: RAD 08:39
PROVIDERS: PCP Family Medicine; Visit Provider Family Medicine
DX: Z12.31 Encounter for screening mammogram for malignant neoplasm of breast (principal); Z00.00 Encounter for general adult medical examination without abnormal findings; R92.323 Mammographic fibroglandular density, bilateral breasts; N63.10 Unspecified lump in the right breast, unspecified quadrant
CPT/HCPCS: 77063; 77067